=== PATIENT | female | born 1970 | race Caucasian/White ===

== ENCOUNTER → 2017-05-17 | Outpatient (REF) | payer OTHER | LOC: ZZSENDIN 15:53 | PROVIDERS: ATTEND Physician Assistant Medical | DX: N39.0 Urinary tract infection, site not specified (principal) | CPT/HCPCS: 87088 ==

== ENCOUNTER → 2017-09-01 | Outpatient (CLI) | payer OTHER ==
--- NOTE | 2017-09-02 09:40 | RADIOLOGY IMAGING REPORT ---
FACILITY: [facility] - [place] PATIENT NAME: ADY GILL : [id number] MR: [id number] V: [id number] EXAM DATE: [id number] ORDERING PHYSICIAN: VITO MENJIVAR TECHNOLOGIST: Roxy Johnson PROCEDURE:LEFT DIGITAL DIAGNOSTIC MAMMOGRAM COMPARISON:03/15/17 INDICATIONS:6 MO F/U/LEFT BREAST CALCIFICATIONS FINDINGS: The left breast is extremely dense. A few benign appearing calcifications are scattered in the Left breast, essentially unchanged. The left breast implant was not included. DIAGNOSTIC CATEGORY 2--BENIGN FINDING. RECOMMENDATIONS: ROUTINE MAMMOGRAM AND CLINICAL EVALUATION. Resume bilateral screening mammography in 6 months. IMPRESSION: BIRADS 2: Benign finding. Dictated by: Palomo Hopper M.D. on 09/01/2017 at 16:22 Transcribed by: JAVID on 09/02/2017 at 9:05 Approved by: Walker Quinonez M.D. on 09/02/2017 at 9:39 [facility]
== END ==
LOC: MAMO 01:22
PROVIDERS: ATTEND Obstetrics & Gynecology
DX: R92.1 Mammographic calcification found on diagnostic imaging of breast (principal)
CPT/HCPCS: 77061; 77065